=== PATIENT | male | born 1970 | race Caucasian/White ===

== ENCOUNTER 2017-11-11 14:07 | Emergency (ER) | payer OTHER ==
--- OUTSIDE RECORDS SUMMARY | 2017-11-11 14:09 | XMS REPORT | Clinical Summary ---
:1970 Author Organization [facility] Address [address] [place] [address] Care Team Providers Name Role Phone Lurdes Jenkins MD Primary Care Provider Allergies Active Allergy Reactions Severity Noted Date Comments Penicillins 09/19/2016 Current Medications Prescription Sig. Disp. Refills Start End Status Date Date latanoprost (XALATAN) Administer 1 Active 0.005 % ophthalmic drop to both 7 solution eyes daily. olopatadine (PATANOL) Administer 1 Active 0.1 % ophthalmic drop to both 7 solution eyes as needed. amitriptyline (ELAVIL) Take 1 tablet 1 30 tablet 0 Discontinued 10 MG hour before 7 017 tabletIndications: bedtime Chronic daily headache methylPREDNISolone Take 1 tablet (4 21 tablet 0 (MEDROL DOSEPAK) 4 mg mg total) by 7 017 tabletIndications: mouth See Admin Cervical radiculopathy Instructions for 5 days. Use as directed by package instructions Active Problems Problem Noted Date Elevated ALT measurement Overview: 09/08 Encounters Date Type Specialty Care Team Description 05/25/2017 Procedure Pass Orthopedic Surgery 05/10/2017 Office Visit Orthopedic Surgery Trace Nash Stenosis of cervical MD Yesika spine (Primary Dx) 04/27/2017 Hospital Encounter Radiology Trace Nash MD radiculopathy 04/25/2017 Procedure Pass Radiology 04/25/2017 Orders Only Orthopedic Surgery George Avilez MA radiculopathy (Primary Dx) 04/03/2017 Office Visit Orthopedic Surgery Trace Nash MD radiculopathy (Primary Dx) 11/14/2016 Lab Lab [place], Elevated ALT Lurdes measurement MD Ghanshyam 11/14/2016 Office Visit Family Medicine [place], Elevated ALT measurement ( Primary Dx); Lurdes Frequent headaches MD Ghanshyam after 11/10/2016 Family History Medical History Relation Name Comments No Known Problems Brother Cancer Father Stefan unknown Diabetes Maternal Grandfather Naren heart attack No Known Problems Mother Relation Name Status Comments Brother Alive Father Stefan Alive Maternal Grandfather Naren Mother Alive Social History Tobacco Use Types Packs/Day Years Used Date Never Smoker Alcohol Use Drinks/Week oz/Week Comments Yes 1 Cans of beer I used to drink a lot but very little now Sex Assigned at Date Recorded Not on file Last Filed Vital Signs Vital Sign Reading Time Taken Blood Pressure 120/75 11/14/2016 3:24 PM CDT Pulse 66 11/14/2016 3:24 PM CDT Temperature 37 C (98.6 F) 11/14/2016 3:24 PM CDT Respiratory Rate - - Oxygen Saturation 96% 11/14/2016 3:24 PM CDT Inhaled Oxygen Concentration - - Weight 103 kg (226 lb) 11/14/2016 3:24 PM CDT Height 170.2 cm (5' 7") 11/14/2016 3:24 PM CDT Body Mass Index 35.4 11/14/2016 3:24 PM CDT Plan of Treatment Health Maintenance Due Date Last Done Comments INFLUENZA VACCINE 02/20/2018 Results MRI Cervical Spine Wo Contrast (04/27/2017 2:14 PM) Specimen Performing Laboratory [place] [id number] Narrative EXAMINATION: MRI CERVICAL SPINE WO CONTRAST CLINICAL HISTORY: M54.12 Radiculopathycervical region, cerv rad COMPARISON:None TECHNIQUE: Multiplanar multisequence noncontrast enhanced examination was performed of the cervical spine. FINDINGS: There is straightening of the cervical lordosis. The craniovertebral junction is unremarkable. There is decreased T2 signal in multiple cervical discs. There is no definite abnormal signal intensity in the cervical cord. C2-3: There is greater anterior disc space narrowing. There is bulge indenting the anterior subarachnoid space. There is mild ligamentum flavum hypertrophy. There is congenital canal and foramen stenosis. C3-4: There is disc space narrowing. There is dorsal spondylosis with central and right paracentral protrusion indenting the anterior cord. There is ligamentum flavum hypertrophy and moderate narrowing of the AP dimension of the central canal, with greater narrowing on the right. There is mass effect on the ventral nerve roots on both sides. There is severe right and moderate left foramen stenosis from facet and uncovertebral joint hypertrophic changes, in part congenital in nature. C4-5: There is a Schmorl's node in the inferior posterior C4 endplate. There is dorsal spondylosis with central protrusion indenting the anterior cord, greater on the right. There is ligamentum flavum hypertrophy indenting the posterior cord. There is moderate to severe narrowing of the AP dimension of the central subarachnoid space. There is severe foramen stenosis greater on the right from facet and uncovertebral joint hypertrophic changes. C5-6: There is central and left paracentral protrusion and spondylosis indenting the anterior cord greater than the right cord. There is ligamentum flavum hypertrophy indenting the posterior cord. There is moderate to severe narrowing of the AP dimension of the central subarachnoid space. There is severe left and moderate right foramen stenosis from facet and uncovertebral joint hypertrophic changes. C6-7: There is greater anterior disc space narrowing. There is central spondylosis and protrusion indenting the anterior cord. There is ligamentum flavum hypertrophy. There is mild to moderate narrowing of the AP dimension of the central subarachnoid space.There are facet and uncovertebral joint hypertrophic changes with moderate foramen stenosis. C7-T1: There is right paracentral and central spondylosis indenting the anterior subarachnoid space on the axial images near the ventral nerve root and touching the right anterior cord. There are hypertrophic changes without significant foramen stenosis. There is a band of decreased T2 and intermediate T1 signal intensity behind the central C3 vertebral body down to the lower C7 vertebral body. This could be from ossification of the posterior longitudinal ligament. There is narrowing of the subarachnoid space and cord indentation in many of these areas. The study was not performed for proper imaging of soft tissue structures in the neck and chest. The vertebral arteries are approximately equal in size. No definite incidental thyroid gland mass is seen although artifacts obscure this area. 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 This may be in part from ossification of the posterior longitudinal ligament. It is also in part from congenital canal stenosis. Multilevel foramen stenosis from degenerative change and in part congenital in nature. [id number] Procedure Note Interface, Radiology Results Incoming - 04/27/2017 4:30 PM CDT EXAMINATION: MRI CERVICAL SPINE WO CONTRAST CLINICAL HISTORY: M54.12 Radiculopathy cervical region, cerv rad COMPARISON: None TECHNIQUE: Multiplanar multisequence noncontrast enhanced examination was performed of the cervical spine. FINDINGS: There is straightening of the cervical lordosis. The craniovertebral junction is unremarkable. There is decreased T2 signal in multiple cervical discs. There is no definite abnormal signal intensity in the cervical cord. C2-3: There is greater anterior disc space narrowing. There is bulge indenting the anterior subarachnoid space. There is mild ligamentum flavum hypertrophy. There is congenital canal and foramen stenosis. C3-4: There is disc space narrowing. There is dorsal spondylosis with central and right paracentral protrusion indenting the anterior cord. There is ligamentum flavum hypertrophy and moderate narrowing of the AP dimension of the central canal, with greater narrowing on the right. There is mass effect on the ventral nerve roots on both sides. There is severe right and moderate left foramen stenosis from facet and uncovertebral joint hypertrophic changes, in part congenital in nature. C4-5: There is a Schmorl's node in the inferior posterior C4 endplate. There is dorsal spondylosis with central protrusion indenting the anterior cord, greater on the right. There is ligamentum flavum hypertrophy indenting the posterior cord. There is moderate to severe narrowing of the AP dimension of the central subarachnoid space. There is severe foramen stenosis greater on the right from facet and uncovertebral joint hypertrophic changes. C5-6: There is central and left paracentral protrusion and spondylosis indenting the anterior cord greater than the right cord. There is ligamentum flavum hypertrophy indenting the posterior cord. There is moderate to severe narrowing of the AP dimension of the central subarachnoid space. There is severe left and moderate right foramen stenosis from facet and uncovertebral joint hypertrophic changes. C6-7: There is greater anterior disc space narrowing. There is central spondylosis and protrusion indenting the anterior cord. There is ligamentum flavum hypertrophy. There is mild to moderate narrowing of the AP dimension of the central subarachnoid space. There are facet and uncovertebral joint hypertrophic changes with moderate foramen stenosis. C7-T1: There is right paracentral and central spondylosis indenting the anterior subarachnoid space on the axial images near the ventral nerve root and touching the right anterior cord. There are hypertrophic changes without significant foramen stenosis. There is a band of decreased T2 and intermediate T1 signal intensity behind the central C3 vertebral body down to the lower C7 vertebral body. This could be from ossification of the posterior longitudinal ligament. There is narrowing of the subarachnoid space and cord indentation in many of these areas. The study was not performed for proper imaging of soft tissue structures in the neck and chest. The vertebral arteries are approximately equal in size. No definite incidental thyroid gland mass is seen although artifacts obscure this area. 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 This may be in part from ossification of the posterior longitudinal ligament. It is also in part from congenital canal stenosis. Multilevel foramen stenosis from degenerative change and in part congenital in nature. [id number] Hepatic function panel (11/14/2016 4:05 PM) Component Value Ref Range Protein 6.9 6.1 - 8.1 g/dL Albumin, S 4.6 3.6 - 5.1 g/dL Globulin, total 2.3 1.9 - 3.7 g/dL (calc) Albumin/globulin ratio 2.0 1.0 - 2.5 (calc) Total bilirubin 0.5 0.2 - 1.2 mg/dL Bilirubin direct 0.1 < OR=0.2 mg/dL Bilirubin, indirect 0.4 0.2 - 1.2 mg/dL (calc) Alkaline phosphatase 59 40 - 115 U/L AST 18 10 - 40 U/L ALT 41 9 - 46 U/L Specimen Performing Laboratory Blood [facility] after 11/10/2016 Insurance Payer Benefit Plan / Group Subscriber ID Type Phone Address [facility] CHOICE/CHOICE + xxxxxxxxx HMO/PPO
[2017-11-11] MEDS ORDERED: FENTANYL CITR 100 MCG/2 ML ONE (14:20)
[2017-11-11] MEDS ORDERED: ONDANSETRON 4 MG/2 ML VIAL ONE (14:20)
[2017-11-11] MEDS ORDERED: KETOROLAC 30 MG/ML INJ ONE (14:21)
[2017-11-11] MEDS ORDERED: NA CHLORIDE 0.9% 1,000 ML ONE (14:21)
[2017-11-11 14:42] LABS: Absolute Lymphocytes (CBC) 4.2 K/uL (0.7-4.9); Absolute Monocytes 1.2 K/uL (0.1-1.3); Absolute Neutrophil 6.5 K/uL (1.8-8.0); Basophils % 0.9 % (0-1.3); Eosinophils % 2.7 % (0-4.4); Hematocrit 42.9 % (39.6-49.0); Lymphocytes % 33.9 % (15.3-44.8); MCH 29.9 pg (27.0-35.0); MPV 10.7 fL (7.6-11.3); Monocytes % 9.7 % (3.3-12.3); RBC Red Blood Cell Count 4.87 M/uL (4.33-5.43)
[2017-11-11 14:48] LABS: Potassium 3.6 mEq/L (3.6-5.0)
[2017-11-11 14:54] LABS: Bilirubin Direct 0.1 mg/dL (0-0.2); Bilirubin Total 0.7 mg/dL (0.3-1.2); Protein, Total 7.6 g/dL (6.0-8.3)
--- NOTE | 2017-11-11 15:23 | RAD REPORT ---
EXAM DESCRIPTION: CT - Stone Protocol - 11/11/2017 3:14 pm CLINICAL HISTORY: Flank pain. Nausea and vomiting COMPARISON: None. TECHNIQUE: Axial images were obtained without oral or IV contrast. Lack of contrast limits solid org an and vascular assessment. The [id number] spans the entirety of the system partially obscuring uppermost abdomen and lung bases. Coronal reformatted images were obtained and reviewed. All CT scans are performed using dose optimization technique as appropriate and may include automated exposure control or mA/KV adjustment according to patient size. FINDINGS: The lower lung gold are clear. Imaged portions of the liver and spleen show no suspicious findings on non-contrast imaging. The panc reas and adrenal glands are normal. No pathologic lymphadenopathy in the abdomen or pelvis. 4 mm stone is present right pelvic inlet (840 HU) resulting in mild right hydronephrosis. Additional punctate nephrolithiasis is present bilaterally. No bowel obstruction, free air, free fluid or abscess. Normal appendix noted. No significant bony abnormality. Lumbar postoperative changes with hardware in place. IMPRESSION: 4 mm stone is present in the right ureter at the level of the pelvic inlet (840 HU) resu lting mild right hydronephrosis. Additional punctate bilateral nephrolithiasis.
--- NOTE | 2017-11-11 15:33 | EDPHYS ---
Physician Documentation [facility] Name: Diego Baeza Age: 47 yrs Sex: Male : 1970 Arrival Date: 11/11/2017 Time: 14:07 Bed 26 Private MD: ED Physician Randy Dorsey HPI: 11/11 14:21 This 47 yrs old Male presents to ER via Ambulatory with complaints of tootie Abdominal Pain. 14:21 The patient complains of pain in the right mid back and right low back. The pain tootie radiates to the right mid back and right low back. Onset: The symptoms/episode began/occurred just prior to arrival. Modifying factors: The symptoms are alleviated by nothing. the symptoms are aggravated by nothing. The patient presents with pain that is acute. The symptoms are located in the low back, right mid back and right low back. Onset: The symptoms/episode began/occurred just prior to arrival. Historical: - Allergies: 14:13 PENICILLINS; la1 14:13 Codeine; la1 - PMHx: 14:13 Hyperlipidemia; Hypertension; la1 - Immunization history:: Adult Immunizations up to date. - Social history:: Smoking status: Patient/guardian denies using tobacco. - Family history:: not pertinent. ROS: 14:21 Constitutional: Negative for fever, chills, and weight loss, Eyes: Negative for injury, tootie pain, redness, and discharge, ENT: Negative for injury, pain, and discharge, Neck: Negative for injury, pain, and swelling, Cardiovascular: Negative for chest pain, palpitations, and edema, Respiratory: Negative for shortness of breath, cough, wheezing, and pleuritic chest pain, Back: Negative for injury and pain, : Negative for injury, bleeding, discharge, and swelling, MS/Extremity: Negative for injury and deformity, Skin: Negative for injury, rash, and discoloration, Neuro: Negative for headache, weakness, numbness, tingling, and seizure, Psych: Negative for depression, anxiety, suicide ideation, homicidal ideation, and hallucinations, Allergy/Immunology: Negative for hives, rash, and allergies, Endocrine: Negative for neck swelling, polydipsia, polyuria, polyphagia, and marked weight changes, Hematologic/Lymphatic: Negative for swollen nodes, abnormal bleeding, and unusual bruising. 14:21 Abdomen/GI: Positive for abdominal pain, nausea and vomiting, of the anterior aspect of right lateral abdomen, posterior aspect of right lateral abdomen, right upper quadrant and right lower quadrant. Exam: 14:21 Constitutional: This is a well developed, well nourished patient who is awake, alert, tootie and in no acute distress. Head/Face: Normocephalic, atraumatic. Eyes: Pupils equal round and reactive to light, extra-ocular motions intact. Lids and lashes normal. Conjunctiva and sclera are non-icteric and not injected. Cornea within normal limits. Periorbital areas with no swelling, redness, or edema. ENT: Nares patent. No nasal discharge, no septal abnormalities noted. Tympanic membranes are normal and external auditory canals are clear. Oropharynx with no redness, swelling, or masses, exudates, or evidence of obstruction, uvula midline. Mucous membranes moist. Neck: Trachea midline, no thyromegaly or masses palpated, and no cervical lymphadenopathy. Supple, full range of motion without nuchal rigidity, or vertebral point tenderness. No Meningismus. Chest/axilla: Normal chest wall appearance and motion. Nontender with no deformity. No lesions are appreciated. Cardiovascular: Regular rate and rhythm with a normal S1 and S2. No gallops, murmurs, or rubs. Normal PMI, no JVD. No pulse deficits. Respiratory: Lungs have equal breath sounds bilaterally, clear to auscultation and percussion. No rales, rhonchi or wheezes noted. No increased work of breathing, no retractions or nasal flaring. Back: No spinal tenderness. No costovertebral tenderness. Full range of motion. Male : Normal genitalia with no discharge or lesions. Skin: Warm, dry with normal turgor. Normal color with no rashes, no lesions, and no evidence of cellulitis. MS/ Extremity: Pulses equal, no cyanosis. Neurovascular intact. Full, normal range of motion. Neuro: Awake and alert, GCS 15, oriented to person, place, time, and situation. Cranial nerves II-XII grossly intact. Motor strength 5/5 in all extremities. Sensory grossly intact. Cerebellar exam normal. Normal gait. Psych: Awake, alert, with orientation to person, place and time. Behavior, mood, and affect are within normal limits. 14:21 Abdomen/GI: Inspection: abdomen appears normal, Bowel sounds: normal, Palpation: abdomen is soft and non-tender, Liver: no appreciated palpable abnormalities, Hernia: not appreciated. Vital Signs: 14:14 BP 170 / 120; Pulse 74; Resp 19; Temp 97.6(TE); Pulse Ox 100% on R/A; Weight 104.33 kg; la1 14:30 BP 165 / 90; Pulse 75; Resp 18; Pulse Ox 99% on R/A; kr2 15:30 BP 148 / 80; Pulse 70; Resp 16; Pulse Ox 99% on R/A; kr2 17:05 BP 149 / 89; Pulse 68; Resp 16; Pulse Ox 100% on R/A; kr2 MDM: 14:18 Patient medically screened. [facility] 14:21 Data reviewed: vital signs, nurses notes, lab test result(s), radiologic studies, CT tootie scan. 11/11 14:20 Order name: Amylase, Serum; Complete Time: 14:56 [facility] 11/11 14:20 Order name: Basic Metabolic Panel; Complete Time: 14:56 [facility] 11/11 14:20 Order name: CBC with Diff; Complete Time: 14:56 [facility] 11/11 14:20 Order name: Creatinine for Radiology; Complete Time: 14:56 [facility] 11/11 14:20 Order name: Hepatic Function; Complete Time: 14:56 [facility] 11/11 14:20 Order name: Lipase; Complete Time: 14:56 [facility] 11/11 14:20 Order name: Urine Microscopic Only [facility] 11/11 14:56 Order name: CT Stone Protocol; Complete Time: 15:31 [facility] 11/11 17:00 Order name: Urine Dipstick--Ancillary (enter results) 11/11 14:20 Order name: IV Saline Lock; Complete Time: 14:33 [facility] 11/11 14:20 Order name: Labs collected and sent; Complete Time: 14:33 [facility] 11/11 14:20 Order name: Urine Dipstick-Ancillary (obtain specimen); Complete Time: 16:52 [facility] Administered Medications: 14:28 Drug: Zofran 4 mg Route: IVP; Site: right antecubital; ss 15:00 Follow up: Response: No adverse reaction kr2 14:30 Drug: fentaNYL (PF) 50 mcg Route: IVP; Site: right antecubital; ss 15:00 Follow up: Response: No adverse reaction; Pain is decreased kr2 14:38 Drug: NS 0.9% 1000 ml Route: IV; Rate: 1 bolus; Site: right antecubital; ss 16:52 Follow up: Response: No adverse reaction; IV Status: Completed infusion kr2 14:38 Drug: TORadol 30 mg Route: IVP; Site: right antecubital; ss 14:40 Follow up: Response: No adverse reaction; Pain is decreased kr2 16:03 Drug: Flomax 0.4 mg Route: PO; kr2 17:03 Follow up: Response: No adverse reaction kr2 16:03 Drug: Rocephin - (cefTRIAXone) 1 grams Route: IVPB; Infused Over: 30 mins; Site: right kr2 antecubital; 16:51 Follow up: Response: No adverse reaction; IV Status: Completed infusion kr2 16:55 Drug: fentaNYL (PF) 50 mcg Route: IVP; Site: right antecubital; kr2 17:03 Follow up: Response: No adverse reaction; Pain is decreased kr2 Disposition: 11/11/17 15:31 Discharged to Home. Impression: Abdominal tenderness, Hydronephrosis with renal and ureteral calculous obstruction. - Condition is Stable. - Discharge Instructions: Kidney Stones, Kidney Stones, [id number], Hydronephrosis. - Prescriptions for Zofran 4 mg Oral Tablet - take 1 tablet by ORAL route every 12 hours As needed; 20 tablet. Flomax 0.4 mg Oral Capsule, Sust. Release 24 hr - take 1 capsule by ORAL route once daily 1/2 hour following the same meal each day; 30 capsule. Cipro 500 mg Oral Tablet - take 1 tablet by ORAL route every 12 hours for 5 days; 10 tablet. Tramadol 50 mg Oral Tablet - take 1 tablet by ORAL route every 8 hours as needed; 26 tablet. - Medication Reconciliation Form, Thank You Letter, Antibiotic Education, Prescription Opioid Use form. - Follow up: Private Physician; When: 2 - 3 days; Reason: Recheck today's complaints, Continuance of care, Re-evaluation by your physician. Follow up: Nereyda Oneill; When: 2 - 3 days; Reason: Recheck today's complaints, Continuance of care, Re-evaluation by your physician. - Problem is new. - Symptoms have improved. Signatures: Dispatcher [employer] EDRandy Patel MD MD cha Smirch, Shelby, RN RN ss Attema, Pratik, RN RN la1 Kaelyn Steve, RN RN kr2
--- NOTE | 2017-11-11 15:33 | ER ---
Nurse's Notes [facility] Name: Diego Baeza Age: 47 yrs Sex: Male : 1970 Arrival Date: 11/11/2017 Time: 14:07 Bed 26 Private MD: Diagnosis: Abdominal tenderness;Hydronephrosis with renal and ureteral calculous obstruction Presentation: 11/11 14:11 Presenting complaint: Significant other states: He has been having abd pain and nausea la1 and "kidney pain" pt appears uncomfortable, grunting and groaning in triage. Transition of care: patient was not received from another setting of care. Onset of symptoms was November 11, 2017. Initial Sepsis Screen: Does the patient meet any 2 criteria? No. Patient's initial sepsis screen is negative. Does the patient have a suspected source of infection? No. Patient's initial sepsis screen is negative. Care prior to arrival: None. 14:11 Method Of Arrival: Ambulatory la1 14:11 Acuity: DARRELL 2 la1 Historical: - Allergies: 14:13 PENICILLINS; la1 14:13 Codeine; la1 - PMHx: 14:13 Hyperlipidemia; Hypertension; la1 - Immunization history:: Adult Immunizations up to date. - Social history:: Smoking status: Patient/guardian denies using tobacco. - Family history:: not pertinent. Screenin:30 Abuse screen: Denies threats or abuse. Denies injuries from another. Nutritional ss screening: No deficits noted. Tuberculosis screening: Never had TB. Fall Risk No fall in past 12 months (0 pts). No secondary diagnosis (0 pts). IV access (20 points). Ambulatory Aid- None/Bed Rest/Nurse Assist (0 pts). Gait- Normal/Bed Rest/Wheelchair (0 pts) Mental Status- Oriented to own ability (0 pts). Assessment: 14:20 General: Appears distressed, uncomfortable, Behavior is cooperative, restless, Denies ss fever, fatigue, chills. Pain: Complains of pain in RLQ that radiates to R mid back and down R testicle Pain currently is 10 out of 10 on a pain scale. Quality of pain is described as sharp, Pain began suddenly, 2 hours ago. Is continuous. Neuro: Level of Consciousness is awake, alert, obeys commands. Cardiovascular: Capillary refill < 3 seconds is brisk in bilateral fingers. Respiratory: Respiratory effort is even, unlabored, Breath sounds are clear bilaterally. GI: Abdomen is round Bowel sounds present X 4 quads. Abd is soft and non tender X 4 quads. Reports nausea, Patient currently denies bloody stool. : Denies burning with urination, discharge, inability to void, urinary frequency, urgency. EENT: Oral mucosa is moist. Derm: Skin Skin is diaphoretic, Skin is pink, Skin temperature is cool. Musculoskeletal: Circulation, motion, and sensation intact. Range of motion: intact in all extremities, Swelling absent. 15:30 Reassessment: Patient appears in no apparent distress at this time. Patient is alert, kr2 oriented x 3, equal unlabored respirations, skin warm/dry/pink. Pain decreased. 16:30 Reassessment: Patient appears in no apparent distress at this time. Patient and/or kr2 family updated on plan of care and expected duration. Pain level reassessed. Patient is alert, oriented x 3, equal unlabored respirations, skin warm/dry/pink. Medicated for increased pain, see MAR. 17:08 Reassessment: Patient appears in no apparent distress at this time. Patient and/or kr2 family updated on plan of care and expected duration. Pain level reassessed. Patient is alert, oriented x 3, equal unlabored respirations, skin warm/dry/pink. Pain is decreased. Vital Signs: 14:14 BP 170 / 120; Pulse 74; Resp 19; Temp 97.6(TE); Pulse Ox 100% on R/A; Weight 104.33 kg; la1 14:30 BP 165 / 90; Pulse 75; Resp 18; Pulse Ox 99% on R/A; kr2 15:30 BP 148 / 80; Pulse 70; Resp 16; Pulse Ox 99% on R/A; kr2 17:05 BP 149 / 89; Pulse 68; Resp 16; Pulse Ox 100% on R/A; kr2 ED Course: 14:07 Patient arrived in ED. as 14:12 Triage completed. la1 14:12 Arm band placed on right wrist. la1 14:17 Randy Dorsey MD is Attending Physician. tootie 14:20 Inserted saline lock: 18 gauge in right antecubital area, using aseptic technique. ss Blood collected. 14:30 Patient has correct armband on for positive identification. Bed in low position. Call ss light in reach. Adult w/ patient. 14:33 Rehana Gross, SCAR is Primary Nurse. ss 15:14 CT Stone Protocol In Process Unspecified. EDMS 15:15 CT completed. Patient tolerated procedure well. Patient moved back from CT. bq 15:31 Nereyda Oneill MD is Referral Physician. tootie 16:53 Urine collected: clean catch specimen, cloudy, omi colored. kr2 17:06 No provider procedures requiring assistance completed. IV discontinued, intact, kr2 bleeding controlled, No redness/swelling at site. Pressure dressing applied. Administered Medications: 14:28 Drug: Zofran 4 mg Route: IVP; Site: right antecubital; ss 15:00 Follow up: Response: No adverse reaction kr2 14:30 Drug: fentaNYL (PF) 50 mcg Route: IVP; Site: right antecubital; ss 15:00 Follow up: Response: No adverse reaction; Pain is decreased kr2 14:38 Drug: NS 0.9% 1000 ml Route: IV; Rate: 1 bolus; Site: right antecubital; ss 16:52 Follow up: Response: No adverse reaction; IV Status: Completed infusion kr2 14:38 Drug: TORadol 30 mg Route: IVP; Site: right antecubital; ss 14:40 Follow up: Response: No adverse reaction; Pain is decreased kr2 16:03 Drug: Flomax 0.4 mg Route: PO; kr2 17:03 Follow up: Response: No adverse reaction kr2 16:03 Drug: Rocephin - (cefTRIAXone) 1 grams Route: IVPB; Infused Over: 30 mins; Site: right kr2 antecubital; 16:51 Follow up: Response: No adverse reaction; IV Status: Completed infusion kr2 16:55 Drug: fentaNYL (PF) 50 mcg Route: IVP; Site: right antecubital; kr2 17:03 Follow up: Response: No adverse reaction; Pain is decreased kr2 Outcome: 15:31 Discharge ordered by . tootie 17:06 Discharged to home ambulatory, with family. kr2 17:06 Condition: good 17:06 Discharge instructions given to patient, family, Instructed on discharge instructions, follow up and referral plans. medication usage, Demonstrated understanding of instructions, follow-up care, medications, Prescriptions given X 4. 17:08 Patient left the ED. kr2 Signatures: Dispatcher [employer] Randy Kapoor MD MD cha Quilty, Betty bq Martinez, Amelia as Smirch, Shelby, RN RN ss Attema, Lee, RN RN la1 Kaelyn Steve RN RN kr2 Corrections: (The following items were deleted from the chart) 14:14 14:11 Acuity: DARRELL 3 la1 la1
[2017-11-11] MEDS ORDERED: TAMSULOSIN 0.4 MG SR CAP ONE (15:57)
[2017-11-11] MEDS ORDERED: CEFTRIAXONE/SWI 1gm 1 GM/10 ML SYR ONE (15:58)
[2017-11-11 17:13] LABS: Urine Blood 3+ (NEG); Urine Glucose NEGATIVE (NEG); Urine Protein 1+ (NEG); Urine pH 5.5 (5.0-7.0)
[2017-11-11 17:17] LABS: Urine Bacteria <20 /HPF (NONE SEEN); Urine Culture Reflex Order NOT NEEDED; Urine Mucus 1+ /HPF (NONE SEEN); Urine RBC >50 /HPF (NONE SEEN)
== END 2017-11-11 17:08 | disposition home or self-care (01) ==
LOC: ER 14:07
DX: N13.2 Hydronephrosis with renal and ureteral calculous obstruction (principal); I10 Essential (primary) hypertension; Z88.0 Allergy status to penicillin; Z88.5 Allergy status to narcotic agent
CPT/HCPCS: 36415; 74176; 76377; 80048; 80076; 81003; 81015; 82150; 83690; 85025; 96361; 96365; 96375; 99284; J0696; J2405; J3010; J7030